=== PATIENT | female | born 1965 | race Two or more races ===

== ENCOUNTER 2023-05-13 06:50 | Inpatient (IN) | payer BC ==
[2023-05-08 13:03] LABS: Basophils # (auto) 0.1 10 ^3/uL (0-0.2); Basophils % (auto) 0.8 % (0.0-2.0); Eosinophils # (auto) 0 10 ^3/uL (0-0.8); Eosinophils % (auto) 0.4 % (0.0-7.0); Hematocrit 43.7 % (36.0-46.0); Hemoglobin 14.5 g/dL (12.2-16.2); Lymphocytes # (auto) 1.6 10 ^3/uL (0.4-5.4); Lymphocytes % (auto) 21.2 % (10.0-50.0); Mean Corpuscular Hemoglobin 31.9 pg (28.0-32.0); Mean Corpuscular Hgb Conc. 33.2 g/dL (32.0-36.0); Mean Corpuscular Volume 96.2 fL (80.0-100.0); Monocytes # (auto) 0.4 10 ^3/uL (0-1.3); Monocytes % (auto) 4.7 % (0.0-12.0); Neutrophils # (auto) 5.6 10 ^3/uL (1.6-8.6); Neutrophils % (auto) 72.9 % (37.0-80.0); Red Blood Cells 4.54 10^6/uL (4.0-5.20); Red Cell Distribution Width 13.8 % (11.8-14.3); White Blood Cell 7.6 10^3/uL (4.4-10.8)
[2023-05-08 13:10] LABS: Urine Bacteria NONE SEEN /hpf (None Seen); Urine Blood Negative /uL (Negative); Urine Clarity Clear (Clear); Urine Color Yellow (Yellow); Urine Protein, UAD Negative (Negative); Urine Specific Gravity 1.023 (1.001-1.035); Urine Urobilinogen Normal (Negative); Urine WBC 2 /hpf (0 - 5)
[2023-05-08 13:31] LABS: INR 0.95 (0.9-1.15); Partial Thromboplastin Time 26.4 SEC (24.5-34.5); Prothrombin Time 10.2 sec (9.3-11.8)
[2023-05-08 13:40] LABS: Albumin 3.7 g/dL (3.4-5.0); BUN/Creatinine Ratio 27.1 (10.0-20.0); Potassium 4.1 mmol/L (3.5-5.1)
[2023-05-08 13:43] LABS: Bilirubin, Total 0.4 mg/dL (0.2-1.0); Total Protein 7.6 g/dL (6.4-8.2)
[~2023-05-13] VITALS: Ht 162.6 cm; Wt 128.4 kg
[2023-05-13] MEDS ORDERED: ceFAZolin 1GM/50ML 100 ML IV ONE (07:16)
[2023-05-13] MEDS ORDERED: MIDAZOLAM HCL 2MG/2ML 2ml VIAL (1mg/ml) ONE (07:34)
[2023-05-13] MEDS ORDERED: fentaNYL CITRATE 100 MCG/2 ML VL ONE (07:34)
[2023-05-13] MEDS ORDERED: DexAMETHasone SOD PHOS 10MG/1ML VIAL INJ ONE (07:34)
[2023-05-13] MEDS ORDERED: KETOROLAC TROMETH 30 MG/ML 1ML VIAL ONE (07:34)
[2023-05-13] MEDS ORDERED: HYDROmorphone HCL 2 MG/ML VL/or syr ONE (07:34)
[2023-05-13] MEDS ORDERED: GLYCOPYRROLATE 0.2 MG/ML 1ML VIAL ONE (07:35)
[2023-05-13] MEDS ORDERED: LIDOCAINE HCL 100 MG/5ML (2%) SYRG INJ IV ONE (07:35)
[2023-05-13] MEDS ORDERED: ePHEDrine SULFATE 50 MG/ML AMP ONE (07:35)
[2023-05-13] MEDS ORDERED: PROPOFOL 10 MG/ML 20 ML IV ONE (07:35)
[2023-05-13] MEDS ORDERED: ONDANSETRON HCL 4 MG/2 ML VIAL ONE (07:35)
[2023-05-13] MEDS ORDERED: ROCURONIUM 10MG/ML 10ML VIAL IV ONE (08:39)
[2023-05-13 10:37] VITALS: PULSE 91; RESP 11; O2SAT 94
[2023-05-13] MEDS ORDERED: ONDANSETRON HCL 4 MG/2 ML VIAL IV PRN ×2 (10:45→11:15)
[2023-05-13] MEDS ORDERED: HYDROmorphone HCL 2 MG/ML VL/or syr IV PRN ×2 (10:45)
[2023-05-13] MEDS ORDERED: ACETAMINOPHEN 325 MG TAB PO PRN (11:15)
[2023-05-13] MEDS ORDERED: HYDROcodone-ACET 5/325MG TAB PO PRN (11:15)
[2023-05-13] MEDS ORDERED: MORPHINE SULFATE INJ 2 MG/ml SYRG IV PRN (11:15)
[2023-05-13] MEDS ORDERED: SUGAMMADEX 200mg/2ml Vial (100MG/ML) IV ONE (11:47)
[2023-05-13] MEDS: D5W/SOD CHL 0.45%/KCL 20MEQ 1,000 ML IV SCH ×2 (13:39→19:05)
[2023-05-13] MEDS: metroNIDAZOLE 500MG/100ML 100 ML IV SCH ×2 (13:40→23:00)
[2023-05-13] MEDS ORDERED: ceFAZolin 1GM/50ML 50 ML IV SCH (14:00)
[2023-05-13] MEDS: ceFAZolin 1GM/50ML 50 ML IV SCH ×2 (17:34→21:49)
[2023-05-13 17:45] VITALS: BP 146/87; PULSE 106; RESP 18; TEMP 98.2
[2023-05-13 17:49] VITALS: BP 146/87; PULSE 106; RESP 18; TEMP 98.3; O2SAT 93; O2SAT 95
[2023-05-13 20:00] VITALS: BP 146/87; PULSE 106; RESP 18; TEMP 98.3; O2SAT 95
[2023-05-13 22:00] VITALS: BP 154/96; PULSE 103; RESP 20; TEMP 98.4; O2SAT 95
[2023-05-14] MEDS: D5W/SOD CHL 0.45%/KCL 20MEQ 1,000 ML IV SCH (03:25)
[2023-05-14 05:00] VITALS: BP 176/84; PULSE 81; RESP 20; TEMP 97.7; O2SAT 95
[2023-05-14] MEDS: metroNIDAZOLE 500MG/100ML 100 ML IV SCH (05:50)
[2023-05-14] MEDS: ceFAZolin 1GM/50ML 50 ML IV SCH (05:50)
[2023-05-14 06:19] LABS: Basophils # (auto) 0 10 ^3/uL (0-0.2); Basophils % (auto) 0.1 % (0.0-2.0); Eosinophils # (auto) 0 10 ^3/uL (0-0.8); Hematocrit 42.4 % (36.0-46.0); Hemoglobin 13.9 g/dL (12.2-16.2); Lymphocytes # (auto) 2.4 10 ^3/uL (0.4-5.4); Lymphocytes % (auto) 17.7 % (10.0-50.0); Mean Corpuscular Hemoglobin 31.6 pg (28.0-32.0); Mean Corpuscular Hgb Conc. 32.7 g/dL (32.0-36.0); Mean Corpuscular Volume 96.9 fL (80.0-100.0); Monocytes # (auto) 1.2 10 ^3/uL (0-1.3); Monocytes % (auto) 8.6 % (0.0-12.0); Neutrophils # (auto) 10.1 10 ^3/uL (1.6-8.6); Neutrophils % (auto) 73.6 % (37.0-80.0); Nucleated Red Blood Cells % 0.1 %; Red Blood Cells 4.38 10^6/uL (4.0-5.20); Red Cell Distribution Width 13.3 % (11.8-14.3); White Blood Cell 13.7 10^3/uL (4.4-10.8)
[2023-05-14 08:00] VITALS: PULSE 88
[2023-05-14 08:10] VITALS: PULSE 92; RESP 20; O2SAT 95
[2023-05-14 09:00] VITALS: BP 174/85; PULSE 92; RESP 20; TEMP 99; O2SAT 95
[2023-05-14] MEDS ORDERED: METR-344 PO (13:45)
[2023-05-14] MEDS ORDERED: LEVO500T91 PO (13:45)
[2023-05-14] MEDS ORDERED: HYDR-4902 PO (13:45)
== END 2023-05-14 16:00 | disposition home or self-care (01) | DRG 418 ==
LOC: SUR 06:50 → TELE 11:20 → TELE-CENTR 13:16
PROVIDERS: ADMIT Internal Medicine; ATTEND Internal Medicine
PROC: 0FT44ZZ Resection of Gallbladder, Percutaneous Endoscopic Approach (ICD-10-PCS; principal; 2023-05-13 09:36)
DX: K80.10 Calculus of gallbladder with chronic cholecystitis without obstruction (principal); Z68.42 Body mass index [BMI] 45.0-49.9, adult; E66.01 Morbid (severe) obesity due to excess calories
CPT/HCPCS: 36415; 80053; 81001; 82247; 85025; 85610; 85730; 86850; 86900; 86901; G0378; J0690; J1100; J1885; J2250; J2405; J2704; J3490